=== PATIENT | female | born 1975 | race Caucasian/White ===

== ENCOUNTER 2016-09-01 18:08 | Emergency (ER) | payer BC ==
[~2016-09-01] VITALS: Ht 162.6 cm; Wt 70.1 kg
[2016-09-01 21:33] VITALS: BP 109/92
== END 2016-09-01 21:37 | disposition home or self-care (01) ==
LOC: EME 18:08
PROC: 3E0S3GC Introduction of Other Therapeutic Substance into Epidural Space, Percutaneous Approach (ICD-10-PCS; principal; 2016-09-01)
DX: G97.1 Other reaction to spinal and lumbar puncture (principal)
CPT/HCPCS: 77002; 99281; 99284; C1755